=== PATIENT | female | born 1965 | race Caucasian/White ===

== ENCOUNTER 2018-03-27 16:27 | Emergency (ER) | payer MEDICARE, OTHER ==
[~2018-03-27] VITALS: Ht 157.5 cm; Wt 56.0 kg
[~2018-03-27 16:27] MED LIST: DIAZ2TAB PO; GABA300C10 PO; NAPR220C2 PO; OLAN10TA3 PO
[2018-03-27 16:28] VITALS: BP 110/75
[2018-03-27] MEDS ORDERED: KETOROLAC 30 MG/1 ML IM ONE (17:00)
[2018-03-27] MEDS ORDERED: METHOCARBAMOL 750 MG TABLET PO ONE (18:00)
[2018-03-27] MEDS ORDERED: METHOCARBAMOL 750 MG TABLET ONE (18:07)
[2018-03-27] MEDS ORDERED: KETOROLAC 30 MG/1 ML ONE (18:07)
== END 2018-03-27 18:15 | disposition home or self-care (01) ==
LOC: ED 17:50
DX: S39.012A Strain of muscle, fascia and tendon of lower back, initial encounter (principal); M51.36 Other intervertebral disc degeneration, lumbar region; F31.9 Bipolar disorder, unspecified; F17.210 Nicotine dependence, cigarettes, uncomplicated; X50.0XXA Overexertion from strenuous movement or load, initial encounter; Y93.89 Activity, other specified; Y92.89 Other specified places as the place of occurrence of the external cause; Y99.8 Other external cause status
CPT/HCPCS: 72110; 96372; 99284; J1885

== ENCOUNTER 2018-04-12 19:27 | Emergency (ER) | payer MEDICARE, OTHER ==
[~2018-04-12] VITALS: Ht 160 cm; Wt 59.0 kg
[2018-04-12 19:52] LABS: BASOPHILS # (AUTO) 0.05 x10^3/uL (0-0.1); BASOPHILS % (AUTO) 1 % (0-1); EOSINOPHILS # (AUTO) 0.27 x10^3/uL (0-0.4); EOSINOPHILS % (AUTO) 4 % (1-7); LYMPHOCYTES # (AUTO) 2.44 x10^3/uL (1-3.4); LYMPHOCYTES % (AUTO) 32 % (22-44); MD NO; MEAN CORPUSCULAR HEMOGLOBIN 34.5 pg (27.0-34.8); MEAN CORPUSCULAR HGB CONC 35.2 g/dL (32.4-35.8); MEAN PLATELET VOLUME 6.4 fL (7.4-10.4); MONOCYTES # (AUTO) 0.62 x10^3/uL (0.2-0.8); MONOCYTES % (AUTO) 8 % (2-9); NEUTROPHILS # (AUTO) 4.16 x10^3/uL (1.8-6.8); NEUTROPHILS % (AUTO) 55 % (42-75); PLATELET COUNT 270 x10^3/uL (130-400); RED BLOOD COUNT 4.28 x10^6/uL (3.82-5.3); RED CELL DISTRIBUTION WIDTH 13.2 % (9.6-15.2)
[2018-04-12] MEDS ORDERED: SODIUM CHLORIDE FLUSH 10ML SYR IVF ONE (20:00)
[2018-04-12 20:02] LABS: ALANINE AMINOTRANSFERASE 26 U/L (12-78); ALBUMIN 3.9 g/dL (3.4-5.0); ANION GAP 6 mmol/L (5-15); CALCIUM 8.5 mg/dL (8.5-10.1); CHLORIDE 110 mmol/L (98-107); CREATININE 0.97 mg/dL (0.55-1.02)
[2018-04-12 20:14] LABS: ALKALINE PHOSPHATASE 60 U/L (45-117); BILIRUBIN,TOTAL 0.2 mg/dL (0.2-1.0); TOTAL PROTEIN 6.7 g/dL (6.4-8.2)
[2018-04-12] MEDS ORDERED: KETOROLAC 30 MG/1 ML IVPush ONE (20:30)
[2018-04-12] MEDS ORDERED: DIPHENHYDRAMINE 50 MG/ML, 1ML IVPush ONE (20:30)
[2018-04-12] MEDS ORDERED: PROCHLORPERAZINE 5 MG/ML, 2ML IVPush ONE (20:30)
[2018-04-12] MEDS ORDERED: PROCHLORPERAZINE 5 MG/ML, 2ML ONE (21:04)
[2018-04-12] MEDS ORDERED: DIPHENHYDRAMINE 50 MG/ML, 1ML ONE (21:04)
[2018-04-12] MEDS ORDERED: KETOROLAC 30 MG/1 ML ONE (21:05)
[2018-04-12 21:56] VITALS: BP 109/68
== END 2018-04-12 21:59 | disposition home or self-care (01) ==
LOC: ED 21:53
DX: G43.909 Migraine, unspecified, not intractable, without status migrainosus (principal); F31.9 Bipolar disorder, unspecified; F17.210 Nicotine dependence, cigarettes, uncomplicated
CPT/HCPCS: 36415; 80053; 80164; 85025; 96374; 96375; 99284; J0780; J1200; J1885

== ENCOUNTER 2018-05-22 16:34 | Emergency (ER) | payer MEDICARE ==
[~2018-05-22] VITALS: Ht 162.6 cm; Wt 62.7 kg
[2018-05-22 16:36] VITALS: BP 105/64
[2018-05-22] MEDS ORDERED: METHOCARBAMOL 750 MG TABLET PO ONE (17:30)
[2018-05-22] MEDS ORDERED: METHOCARBAMOL 750 MG TABLET ONE (17:31)
[2018-05-22] MEDS ORDERED: KETOROLAC 30 MG/1 ML ONE (17:38)
[2018-05-22] MEDS ORDERED: KETOROLAC 30 MG/1 ML IM ONE (18:00)
== END 2018-05-22 18:04 | disposition home or self-care (01) ==
LOC: ED 17:40
DX: G89.29 Other chronic pain (principal); M54.6 Pain in thoracic spine; M54.5 Low back pain; M41.9 Scoliosis, unspecified; M19.90 Unspecified osteoarthritis, unspecified site; F31.9 Bipolar disorder, unspecified; F17.200 Nicotine dependence, unspecified, uncomplicated
CPT/HCPCS: 72072; 96372; 99284; J1885

== ENCOUNTER 2018-11-06 09:44 | Emergency (ER) | payer MEDICARE, OTHER ==
[~2018-11-06] VITALS: Ht 157.5 cm; Wt 58.5 kg
[2018-11-06 10:34] LABS: BASOPHILS # (AUTO) 0.08 x10^3/uL (0-0.1); BASOPHILS % (AUTO) 1 % (0-1); EOSINOPHILS % (AUTO) 4 % (1-7); LYMPHOCYTES # (AUTO) 1.81 x10^3/uL (1-3.4); LYMPHOCYTES % (AUTO) 33 % (22-44); MD NO; MEAN CORPUSCULAR HEMOGLOBIN 33.4 pg (27.0-34.8); MEAN CORPUSCULAR HGB CONC 34.5 g/dL (32.4-35.8); MEAN PLATELET VOLUME 6.4 fL (7.4-10.4); MONOCYTES # (AUTO) 0.53 x10^3/uL (0.2-0.8); MONOCYTES % (AUTO) 10 % (2-9); NEUTROPHILS % (AUTO) 53 % (42-75); PLATELET COUNT 277 x10^3/uL (130-400); RED BLOOD COUNT 4.23 x10^6/uL (3.82-5.3)
--- NOTE | 2018-11-06 10:35 | NUR ---
REPORT FROM JUSTIN PAZ. PT TO RESTROOM TO ATTEMPT TO OBTAIN URINE SAMPLE.
[2018-11-06 10:41] LABS: ALBUMIN 4.5 g/dL (3.4-5.0); ANION GAP 7 mmol/L (5-15); CALCIUM 9.7 mg/dL (8.5-10.1); CHLORIDE 105 mmol/L (98-107); SALICYLATE LEVEL 4.7 mg/dL (2.8-20.0)
[2018-11-06 10:45] LABS: ALANINE AMINOTRANSFERASE 24 U/L (12-78); ALKALINE PHOSPHATASE 71 U/L (45-117); BILIRUBIN,TOTAL 0.7 mg/dL (0.2-1.0); CREATININE 1.01 mg/dL (0.55-1.02); TOTAL PROTEIN 7.8 g/dL (6.4-8.2)
[2018-11-06 10:46] LABS: ACETAMINOPHEN < 2 mcg/mL (10-30)
--- NOTE | 2018-11-06 11:20 | NUR ---
WALKED URINE SAMPLE TO LAB. PT RESTING IN [facility] [place] NOTED AT THIS TIME.
--- NOTE | 2018-11-06 11:27 | NUR ---
ASSUMED CARE AT THIS TIME PT ON LEGAL 2K.
--- NOTE | 2018-11-06 11:30 | NUR ---
REPORT TO JUSTIN VAZQUEZ.
[2018-11-06 11:55] VITALS: BP 124/87
--- NOTE | 2018-11-06 11:55 | NUR ---
PT SLEEPING IN BED IN NADN. PT HAS GOOD CAP REFILL AND EQUAL AND UNLABORED RESPIRATIONS. Q15M VISUAL CHECKS BEIGN PERFOREMD BY EMT.
--- NOTE | 2018-11-06 13:03 | NUR ---
PT SLEEPING IN BED IN NADN. PT HAS GOOD CAP REFILL AND EQUAL AND UNLABORED RESPIRATIONS. Q15M VISUAL CHECKS BEIGN PERFOREMD BY EMT.
--- NOTE | 2018-11-06 13:33 | NUR ---
LEGAL 2K DECERTIFIED. PT TO DC HOME.
--- NOTE | 2018-11-06 14:20 | NUR ---
PT HELPED TO GET DRESSED, DROWSY BUT A&OX4 ABLE TO ANSWER ALL QUESTIONS AND FOLLOW DIRECTIONS. ALL BELONGINGS BAGGED UP AND GIVEN TO PT. VOUCHER PROVIDED FOR SAFE TRANSPORT TO INTERMEDIATE. PT STATES UNDERSTANDING OF ALL DC PAPERS.
== END 2018-11-06 14:21 | disposition home or self-care (01) ==
LOC: ED 13:55
DX: F44.89 Other dissociative and conversion disorders (principal); M19.90 Unspecified osteoarthritis, unspecified site; F31.9 Bipolar disorder, unspecified
CPT/HCPCS: 36415; 80053; 80307; 80329; 85025; 99284; G0480

== ENCOUNTER 2021-04-08 20:08 | Emergency (ER) | payer MEDICARE, OTHER ==
[~2021-04-08] VITALS: Ht 165.1 cm; Wt 59.9 kg
[2021-04-08 20:15] VITALS: BP 133/80
[2021-04-08] MEDS ORDERED: HYDROcodone/APAP 5/325 TABLET ONE (21:52)
[2021-04-08] MEDS ORDERED: HYDROcodone/APAP 5/325 TABLET PO ONE (22:00)
[2021-04-08] MEDS ORDERED: KETOROLAC 30 MG/1 ML IM ONE (23:00)
[2021-04-08] MEDS ORDERED: KETOROLAC 30 MG/1 ML ONE (23:02)
== END 2021-04-08 23:31 | disposition home or self-care (01) ==
LOC: ED 20:30
DX: M79.622 Pain in left upper arm (principal); M65.4 Radial styloid tenosynovitis [de Quervain]; M79.632 Pain in left forearm; I10 Essential (primary) hypertension
CPT/HCPCS: 29125; 93971; 96372; 99284; J1885